=== PATIENT | male | born 1965 | race Caucasian/White ===

== ENCOUNTER 2017-02-22 10:35 | Outpatient (CLI) | payer SELFPAY ==
[2016-07-29 15:27] VITALS: BP 130/78
== END 2017-02-22 10:36 ==
LOC: LABRHC 10:35
PROVIDERS: ATTEND Physician Assistant
DX: R30.0 Dysuria (principal)
CPT/HCPCS: 87086

== ENCOUNTER 2019-02-16 19:17 | Emergency (ER) | payer SELFPAY ==
--- NOTE | 2019-02-16 19:32 | ED Physician Documentation ---
Upper Respiratory Symptoms - HISTORIAN Historian: patient - HPI Stated Complaint: cough, sinus congestion Chief Complaint: Cough/ Upper Respiratory Additional Information: Patient presents to ED with a 3 week history of cough, nasal congestion and sinus pain. Patient states he has been to ER in [place] twice finished Azithromycin/Prednisone and then getting Flonase without much improvement. He has low grade fever here of 100.0 Onset: days ago (21) Duration: intermittent episodes Context: denies: recent foreign travel Severity: moderate Associated Symptoms: runny nose, sinus pain, sore throat, productive cough. denies: fever, chills - ROS CONST/EYES: denies: weakness CVS/RESP: shortness of breath. denies: chest pain LYMPH: denies: ankle swelling GI/: denies: vomiting, nausea NEURO/PSYCH: denies: dizziness MS/SKIN: denies: muscle aches - PAST HX Lung Disease: COPD, bronchitis PE Risk Factors: none Allergies/Adverse Reactions: Allergies Allergy/AdvReac Type Severity Reaction Status Date / Time ciprofloxacin Allergy Intermediate diarrhea Verified 02/16/19 19:35 No Known Allergies Allergy Unverified 07/29/16 14:32 Home Medications: Ambulatory Orders Medication Instructions Recorded Amoxicillin/Potassium Clav 1 each PO BID #28 tablet 02/16/19 [Augmentin 875Mg/125Mg] - SOCIAL HX Smoking History: cigarettes, greater than 1 pack/day Alcohol Use: none Drug Use: none - FAMILY HX Family History: none - VITAL SIGNS Vital Signs: Vital Signs Temp Pulse Resp BP Pulse Ox 100.0 F H 103 H 18 115/75 98 02/16/19 19:17 02/16/19 19:17 02/16/19 19:17 02/16/19 19:17 02/16/19 19:17 - REVIEWED ASSESSMENTS Nursing Assessment Reviewed: Yes Vitals Reviewed: Yes ED Results Lab/Radiology - Orders Orders: ED Orders Category Date Time Status Amoxicillin/Potassium Clav [AUGMENTIN 875MG/125 mg Med 02/16/19 19:41 Once Tablet] 1 each PO NOW ONE Upper Respiratory Symptoms - EXAM General Appearance: no acute distress EENT: other (posterior pharynx cobblestone) Neck: supple Respiratory: no resp. distress, breath sounds nml Abdomen: non-tender, nml bowel sounds. No: tenderness CVS: reg rate & rhythm, heart sounds normal Skin: color nml, no rash, warm,dry Extremities: non-tender, no edema Neuro/Psych: oriented x3, mood/affect nml Discharge Clincal Impression: Acute maxillary sinusitis Qualifiers: Recurrence: non-recurrent Qualified Code(s): J01.00 - Acute maxillary sinusitis, unspecified Prescriptions: Amoxicillin/Potassium Clav [Augmentin 875Mg/125Mg] 1 each PO BID #28 tablet Referrals: Primary Doctor,No [Primary Care Provider] - 2 Days Additional Instructions: 1. Tylenol and/or Ibuprofen as needed for pain/fever 2. Add daily antihistamine such as Claritin, Zyrtec, Rain or Xyxal 3. Add Mucinex daily until antibiotics are complete. Do NOT get the "D" formulation, it will cause your blood pressure to elevate 4. Nasal saline spray and/or nasal irrigation may be beneficial 5. Smoking cessation recommended 6. Follow up with PCP within 1 week 7. Return to ER for new or worsening symptoms Condition: Stable Disposition: 01 HOME, SELF-CARE Decision to Admit: NO Date of Decison to Admit: 02/16/19 Decision Time: 19:50
[2019-02-16] MEDS ORDERED: AMOXICILLIN/POT 875/125 1 EACH PO ONE (19:41)
[2019-02-16 19:44] VITALS: BP 115/75
== END 2019-02-16 19:57 | disposition home or self-care (01) ==
LOC: ED 19:17
DX: J01.00 Acute maxillary sinusitis, unspecified (principal); Z72.0 Tobacco use
CPT/HCPCS: 87400; 99283